=== PATIENT | female | born 1960 | race Caucasian/White ===

== ENCOUNTER 2017-08-25 06:22 | Emergency (ER) | payer BC ==
[2017-08-25] MEDS ORDERED: Ketorolac 30 MG/ML SDV IVPUSH ONE (07:07)
[2017-08-25] MEDS ORDERED: Sodium Chloride 0.9% 1,000 ML IV ONE (07:07)
[2017-08-25] MEDS ORDERED: Ondansetron 4 MG/2 ML SDV IVPUSH ONE (07:07)
[2017-08-25 07:11] LABS: CHLORIDE,CL 109 mmol/L (98-110); SODIUM,NA 142 mmol/L (136-146)
[2017-08-25] MEDS ORDERED: Tamsulosin 0.4 MG Cap.ER PO ONE (07:12)
--- NOTE | 2017-08-25 07:23 | EDM.PDOC ---
ED HPI GENERAL MEDICAL PROBLEM - General Chief Complaint: Abdominal Pain Stated Complaint: PAIN ON LEFT SIDE Time Seen by Provider: 08/25/17 08:56 - History of Present Illness INITIAL COMMENTS - FREE TEXT/NARRATIVE: HISTORY AND PHYSICAL: History of present illness: Patient 48-year-old white female presents with a concern of left flank and abdominal pain came on somewhat acutely she does have associated nausea no vomiting no fever chills she denies trauma denies urinary symptoms she has had prior urolithiasis she denies history of known diverticular disease Review of systems: As per history of present illness and below otherwise all systems reviewed and negative. Past medical history: As per history of present illness and as reviewed below otherwise noncontributory. Surgical history: As per history of present illness and as reviewed below otherwise noncontributory. Social history: No reported history of drug or alcohol abuse. Family history: As per history of present illness and as reviewed below otherwise noncontributory. Physical exam: HEENT: Atraumatic, normocephalic, pupils reactive, negative for conjunctival pallor or scleral icterus, mucous membranes moist, throat clear, neck supple, nontender, trachea midline. Lungs: Clear to auscultation, breath sounds equal bilaterally, chest nontender. Heart: S1S2, regular, negative for clicks, rubs, or JVD. Abdomen: Soft, nondistended, nontender. Negative for masses or hepatosplenomegaly. Left-sided costovertebral tenderness. Pelvis: Stable nontender. Genitourinary: Deferred. Rectal: Deferred. Extremities: Atraumatic, negative for cords or calf pain. Neurovascular unremarkable. Neuro: Awake, alert, oriented. Cranial nerves II through XII unremarkable. Cerebellum unremarkable. Motor and sensory unremarkable throughout. Exam nonfocal. Diagnostics: CBC CMP UA urine culture CT abdomen and pelvis Therapeutics: Saline 1 L bolus and Toradol 30 mg IV Zofran 4 mg IV Flomax 0.4 mg by mouth Dilaudid 1 mg when necessary Impression: #1 acute left flank/abdominal pain Definitive disposition and diagnosis as appropriate pending reevaluation and review of above. LLQ Abdomen Pain Score (Numeric/FACES): 7 - Related Data Allergies Allergy/AdvReac Type Severity Reaction Status Date / Time No Known Allergies Allergy Verified 08/25/17 06:33 Home Meds: Home Meds Levothyroxine 0.05 mcg PO DAILY 08/25/17 [History] Past Medical History Endocrine/Metabolic History: Reports: Hypothyroidism Social & Family History - Family History Family Medical History: Noncontributory - Tobacco Use Smoking Status *Q: Never Smoker - Recreational Drug Use Recreational Drug Use: No ED ROS GENERAL - Review of Systems Review Of Systems: ROS reveals no pertinent complaints other than HPI. ED EXAM, GENERAL - Physical Exam Exam: See Below (See dictation) Course - Vital Signs Last Recorded V/S: Last Vital Signs Temp 36.3 C 08/25/17 06:22 Pulse 72 08/25/17 06:22 Resp 18 08/25/17 06:22 BP 163/70 H 08/25/17 06:22 Pulse Ox 99 08/25/17 06:22 - Orders/Labs/Meds Orders: Active Orders 24 hr Category Date Time Status Abdomen Pelvis wo Cont [CT] Stat Exams 08/25/17 07:07 Taken Labs: Laboratory Tests 08/25/17 08/25/17 08/25/17 Range/Units 06:14 06:39 06:40 WBC 6.72 (4.0-11.0) K/uL RBC 4.54 (4.30-5.90) M/uL Hgb 13.7 (12.0-16.0) g/dL Hct 41.5 (36.0-46.0) % MCV 91.4 (80.0-98.0) fL MCH 30.2 (27.0-32.0) pg MCHC 33.0 (31.0-37.0) g/dL RDW Std Deviation 47.5 (28.0-62.0) fl RDW Coeff of Renetta 14 (11.0-15.0) % Plt Count 171 (150-400) K/uL MPV 10.30 (7.40-12.00) fL Neut % (Auto) 48.8 (48.0-80.0) % Lymph % (Auto) 41.5 H (16.0-40.0) % Pike % (Auto) 6.8 (0.0-15.0) % Eos % (Auto) 2.5 (0.0-7.0) % Baso % (Auto) 0.4 (0.0-1.5) % Neut # (Auto) 3.3 (1.4-5.7) K/uL Lymph # (Auto) 2.8 H (0.6-2.4) K/uL Pike # (Auto) 0.5 (0.0-0.8) K/uL Eos # (Auto) 0.2 (0.0-0.7) K/uL Baso # (Auto) 0.0 (0.0-0.1) K/uL Nucleated RBC % 0.0 /100WBC Nucleated RBCs # 0 K/uL Sodium (136-146) mmol/L Potassium (3.5-5.1) mmol/L Chloride (98-110) mmol/L Carbon Dioxide (21-31) mmol/L BUN (6.0-23.0) mg/dL Creatinine (0.6-1.5) mg/dL Est Cr Clr Drug Dosing Estimated GFR (MDRD) ml/min Glucose (60-110) mg/dL Calcium (8.8-10.8) mg/dL Total Bilirubin (0.1-1.5) mg/dL AST (5-40) IU/L ALT (8-54) IU/L Alkaline Phosphatase (40-150) Troponin I < 0.10 (0.0-0.29) NG/ML Total Protein (6.0-8.0) g/dL Albumin (3.5-5.0) g/dL Globulin (2.0-3.5) g/dL Albumin/Globulin Ratio (1.3-2.8) Amylase (10-90) U/L Lipase (7-80) U/L Urine Color YELLOW Urine Appearance SLT CLOUDY Urine pH 5.0 (5.0-8.0) Ur Specific [place] >= 1.030 (1.001-1.035) Urine Protein 30 (NEGATIVE) mg/dL Urine Glucose (UA) NEGATIVE (NEGATIVE) mg/dL Urine Ketones NEGATIVE (NEGATIVE) mg/dL Urine Occult Blood LARGE H (NEGATIVE) Urine Nitrite NEGATIVE (NEGATIVE) Urine Bilirubin SMALL H (NEGATIVE) Urine Ictotest NEGATIVE Urine Urobilinogen 1.0 (<2.0) EU/dL Ur Leukocyte Esterase NEGATIVE (NEGATIVE) Urine RBC 50-60 (0-2/HPF) Urine WBC 0-3 (0-5/HPF) Ur Epithelial Cells OCCASIONAL (NONE-FEW) Ur Renal Epithelial Cell RARE Urine Bacteria FEW (NEGATIVE) Urinalysis Comment 08/25/17 Range/Units 06:40 WBC (4.0-11.0) K/uL RBC (4.30-5.90) M/uL Hgb (12.0-16.0) g/dL Hct (36.0-46.0) % MCV (80.0-98.0) fL MCH (27.0-32.0) pg MCHC (31.0-37.0) g/dL RDW Std Deviation (28.0-62.0) fl RDW Coeff of Renetta (11.0-15.0) % Plt Count (150-400) K/uL MPV (7.40-12.00) fL Neut % (Auto) (48.0-80.0) % Lymph % (Auto) (16.0-40.0) % Pike % (Auto) (0.0-15.0) % Eos % (Auto) (0.0-7.0) % Baso % (Auto) (0.0-1.5) % Neut # (Auto) (1.4-5.7) K/uL Lymph # (Auto) (0.6-2.4) K/uL Pike # (Auto) (0.0-0.8) K/uL Eos # (Auto) (0.0-0.7) K/uL Baso # (Auto) (0.0-0.1) K/uL Nucleated RBC % /100WBC Nucleated RBCs # K/uL Sodium 142 (136-146) mmol/L Potassium 3.7 (3.5-5.1) mmol/L Chloride 109 (98-110) mmol/L Carbon Dioxide 24 (21-31) mmol/L BUN 16 (6.0-23.0) mg/dL Creatinine 1.1 (0.6-1.5) mg/dL Est Cr Clr Drug Dosing TNP Estimated GFR (MDRD) 51.0 ml/min Glucose 115 H (60-110) mg/dL Calcium 9.1 (8.8-10.8) mg/dL Total Bilirubin 0.4 (0.1-1.5) mg/dL AST 25 (5-40) IU/L ALT 23 (8-54) IU/L Alkaline Phosphatase 106 (40-150) Troponin I (0.0-0.29) NG/ML Total Protein 7.7 (6.0-8.0) g/dL Albumin 4.4 (3.5-5.0) g/dL Globulin 3.3 (2.0-3.5) g/dL Albumin/Globulin Ratio 1.3 (1.3-2.8) Amylase 59 (10-90) U/L Lipase 30 (7-80) U/L Urine Color Urine Appearance Urine pH (5.0-8.0) Ur Specific [place] (1.001-1.035) Urine Protein (NEGATIVE) mg/dL Urine Glucose (UA) (NEGATIVE) mg/dL Urine Ketones (NEGATIVE) mg/dL Urine Occult Blood (NEGATIVE) Urine Nitrite (NEGATIVE) Urine Bilirubin (NEGATIVE) Urine Ictotest Urine Urobilinogen (<2.0) EU/dL Ur Leukocyte Esterase (NEGATIVE) Urine RBC (0-2/HPF) Urine WBC (0-5/HPF) Ur Epithelial Cells (NONE-FEW) Ur Renal Epithelial Cell Urine Bacteria (NEGATIVE) Urinalysis Comment Meds: Medications Discontinued Medications Generic Name Dose Route Start Last Admin Trade Name Freq PRN Reason Stop Dose Admin Sodium Chloride 1,000 mls @ 999 mls/hr 08/25/17 07:07 08/25/17 07:18 Normal Saline IV 08/25/17 08:07 999 mls/hr STAT ONE Administration Ketorolac Tromethamine 30 mg 08/25/17 07:07 08/25/17 07:18 Toradol IVPUSH 08/25/17 07:08 30 mg ONETIME ONE Administration Ondansetron HCl 8 mg 08/25/17 07:07 08/25/17 07:18 Zofran IVPUSH 08/25/17 07:08 8 mg ONETIME ONE Administration Tamsulosin HCl 0.4 mg 08/25/17 07:12 08/25/17 07:25 Flomax PO 08/25/17 07:13 0.4 mg ONETIME ONE Administration Departure - Departure Time of Disposition: 08:56 Disposition: Home, Self-Care 01 Condition: Good Clinical Impression: Urolithiasis - Discharge Information Referrals: Quincy Ledesma MD [Primary Care Provider] - Forms: ED Department Discharge Additional Instructions: The following information is given to patients seen in the emergency department who are being discharged to home. This information is to outline your options for follow-up care. We provide all patients seen in our emergency department with a follow-up referral. The need for follow-up, as well as the timing and circumstances, are variable depending upon the specifics of your emergency department visit. If you don't have a primary care physician on staff, we will provide you with a referral. We always advise you to contact your personal physician following an emergency department visit to inform them of the circumstance of the visit and for follow-up with them and/or the need for any referrals to a consulting specialist. The emergency department will also refer you to a specialist when appropriate. This referral assures that you have the opportunity for followup care with a specialist. All of these measure are taken in an effort to provide you with optimal care, which includes your followup. Under all circumstances we always encourage you to contact your private physician who remains a resource for coordinating your care. When calling for followup care, please make the office aware that this follow-up is from your recent emergency room visit. If for any reason you are refused follow-up, please contact the [facility] emergency department at and asked to speak to the emergency department charge nurse. Hydrocodone Zofran as prescribed Flomax as prescribed called to schedule follow- up with urology at [facility] push fluids return as needed as discussed
[2017-08-25] MEDS ORDERED: HYDROmorphone 1 MG/ML Syringe IM ONE (09:01)
[2017-08-25] MEDS ORDERED: HYDROmorphone 1 MG/ML Syringe IV ONE (09:06)
[2017-08-25] MEDS ORDERED: Sodium Chloride 0.9% 1,000 ML IV SCH (09:15)
--- NOTE | 2017-08-25 19:10 | CT ---
EXAM DATE: 08/25/17 PATIENT'S AGE: 56 Patient: BRODIE COUCH Facility: [place], [place] Site . Site : 1960 Study: CT Abdomen/Pelvis [id number]/[id number] 7:55:03 AM Ordering Physician: Dodie Ellsworth Final Report: INDICATION: pain TECHNIQUE: Noncontrast CT scan of the abdomen and pelvis. FINDINGS: The lung bases show a 4 mm pulmonary nodule in the right middle lobe best seen on image 8 of series 201. No focal abnormalities identified in the visualized portions of the liver, spleen, pancreas, adrenal glands, and kidneys. 6 mm stone in the proximal left ureter which causes minimal left-sided hydronephrosis. Single small nonobstructing nephrolith in the lower pole of the left kidney. No other uroliths. No right-sided hydronephrosis. The GI tract is incompletely distended but shows no gross abnormalities. The stomach and GE junction are not well assessed. No retroperitoneal, pelvic sidewall, or mesenteric adenopathy. Atherosclerotic vascular calcifications. Gallstones in an otherwise normal-appearing gallbladder. No bile duct dilation. IMPRESSION: 1. 6 mm stone in the proximal left ureter which causes minimal left-sided hydronephrosis. 2. 4 mm pulmonary nodule in the right lower lobe. If the patient has a history of smoking a followup chest CT scan should be considered in 1 year to document stability of this nodule. Otherwise, no followup is required. Dictated by Mike Bella MD @ 08/25/2017 8:14:50 AM Dictated by: Mike Bella MD @ 08/25/2017 08:14:58 (Electronic Signature) Report Signed by Proxy. MOH[facility] VALLEY HEALTH SYSTEMMaty
== END 2017-08-25 10:26 | disposition home or self-care (01) ==
LOC: MW.ED 06:22
DX: N13.2 Hydronephrosis with renal and ureteral calculous obstruction (principal); E03.9 Hypothyroidism, unspecified; Z79.899 Other long term (current) drug therapy
CPT/HCPCS: 36415; 74176; 80053; 81001; 82150; 83690; 84484; 85025; 96361; 96374; 96375; 99284; A9270; J1170; J1885; J2405; J7040

== ENCOUNTER 2020-02-29 13:43 | Emergency (ER) | payer BC ==
[2020-02-29] MEDS ORDERED: Sodium Chloride 0.9% 2.5 ML Syringe FLUSH PRN (14:29)
[2020-02-29] MEDS ORDERED: Sodium Chloride 0.9% 10 ML Syringe FLUSH PRN (14:29)
[2020-02-29] MEDS ORDERED: Ondansetron 4 MG/2 ML SDV IVPUSH ONE (14:31)
[2020-02-29] MEDS ORDERED: Ketorolac 30 MG/ML SDV IVPUSH ONE (14:31)
[2020-02-29] MEDS ORDERED: Sodium Chloride 0.9% 1,000 ML IV ONE (14:31)
--- NOTE | 2020-02-29 14:35 | EDM.PDOC ---
ED HPI GENERAL MEDICAL PROBLEM - General Chief Complaint: Abdominal Pain Stated Complaint: LEFT SIDE ABDOMINAL PAIN Time Seen by Provider: 02/29/20 14:25 Source of Information: Reports: Patient History Limitations: Reports: No Limitations - History of Present Illness INITIAL COMMENTS - FREE TEXT/NARRATIVE: Presents reporting left flank pain. Patient states she has a history of renal stones and this pain is reminiscent of her previous episodes. Yesterday she started with some urinary stream stuttering and urgency. Then today reported some left flank pain accompanied by nausea and dry heaves. She is otherwise healthy without chronic medical problems except tyroid. She denies fever, burning with urination vomiting, diarrhea, constipation or abdominal pain. left kidney Pain Score (Numeric/FACES): 7 - Related Data Allergies Allergy/AdvReac Type Severity Reaction Status Date / Time No Known Allergies Allergy Verified 02/29/20 14:02 Home Meds: Home Meds Levothyroxine 0.05 mcg PO DAILY 08/25/17 [History] Hydrocodone/Acetaminophen [Hydrocodon-Acetaminoph 7.5-325] 1 tab PO Q6HR PRN #20 tablet 02/29/20 [Rx] Ondansetron [Zofran ODT] 1 tab PO Q6H PRN #8 tab.dis 02/29/20 [Rx] Tamsulosin HCl [Flomax] 0.4 mg PO DAILY #10 capsule 02/29/20 [Rx] Past Medical History - Past Health History Medical/Surgical History: Denies Medical/Surgical History Endocrine/Metabolic History: Reports: Hypothyroidism Social & Family History - Family History Family Medical History: Noncontributory ED ROS GENERAL - Review of Systems Review Of Systems: Comprehensive ROS is negative, except as noted in HPI. ED EXAM, RENAL/ - Physical Exam Exam: See Below Exam Limited By: No Limitations General Appearance: Alert, No Apparent Distress Ears: Normal External Exam Nose: Normal Inspection Throat/Mouth: Normal Inspection Head: Atraumatic, Normocephalic Neck: Normal Inspection Respiratory/Chest: No Respiratory Distress, Lungs Clear, Normal Breath Sounds Cardiovascular: Normal Peripheral Pulses, Regular Rate, Rhythm, No Edema GI/Abdominal: Soft, Non-Tender, No Distention Back Exam: No: CVA Tenderness (L), CVA Tenderness (R) Extremities: Normal Inspection Neurological: Alert, Oriented, Normal Cognition Psychiatric: Normal Affect, Normal Mood Skin Exam: Warm, Dry, Intact, Normal Color, No Rash Lymphatic: No Adenopathy Course - Vital Signs Last Recorded V/S: Last Vital Signs Temp 36.2 C 02/29/20 14:00 Pulse 79 02/29/20 14:00 Resp 16 02/29/20 14:00 BP 141/61 H 02/29/20 14:00 Pulse Ox 99 02/29/20 14:00 - Orders/Labs/Meds Orders: Active Orders 24 hr Category Date Time Status Sodium Chloride 0.9% [Saline Flush] Med 02/29/20 14:29 Ordered 10 ml FLUSH ASDIRECTED PRN Sodium Chloride 0.9% [Saline Flush] Med 02/29/20 14:29 Ordered 2.5 ml FLUSH ASDIRECTED PRN Saline Lock Insert [OM.PC] Stat Oth 02/29/20 14:29 Ordered Medication Orders Sodium Chloride (Saline Flush) 10 ml FLUSH ASDIRECTED PRN PRN Reason: Keep Vein Open Last Admin: 02/29/20 14:38 Dose: 10 ml Documented by: NINA Sodium Chloride (Saline Flush) 2.5 ml FLUSH ASDIRECTED PRN PRN Reason: Keep Vein Open Last Admin: 02/29/20 14:38 Dose: 2.5 ml Documented by: NINA Labs: Laboratory Tests 02/29/20 02/29/20 02/29/20 Range/Units 13:51 14:51 14:51 WBC 7.27 (4.0-11.0) K/uL RBC 4.05 L (4.30-5.90) M/uL Hgb 12.2 (12.0-16.0) g/dL Hct 37.7 (36.0-46.0) % MCV 93.1 (80.0-98.0) fL MCH 30.1 (27.0-32.0) pg MCHC 32.4 (31.0-37.0) g/dL RDW Std Deviation 46.7 (28.0-62.0) fl RDW Coeff of Renetta 14 (11.0-15.0) % Plt Count 148 L (150-400) K/uL MPV 10.50 (7.40-12.00) fL Neut % (Auto) 68.1 (48.0-80.0) % Lymph % (Auto) 23.2 (16.0-40.0) % [place] % (Auto) 7.3 (0.0-15.0) % Eos % (Auto) 1.1 (0.0-7.0) % Baso % (Auto) 0.3 (0.0-1.5) % Neut # (Auto) 5.0 (1.4-5.7) K/uL Lymph # (Auto) 1.7 (0.6-2.4) K/uL [place] # (Auto) 0.5 (0.0-0.8) K/uL Eos # (Auto) 0.1 (0.0-0.7) K/uL Baso # (Auto) 0.0 (0.0-0.1) K/uL Nucleated RBC % 0.0 /100WBC Nucleated RBCs # 0 K/uL Sodium 143 (136-145) mmol/L Potassium 3.8 (3.5-5.1) mmol/L Chloride 108 H (98-107) mmol/L Carbon Dioxide 25.7 (21.0-32.0) mmol/L BUN 15 (7.0-18.0) mg/dL Creatinine 1.0 (0.6-1.0) mg/dL Est Cr Clr Drug Dosing 61.74 mL/min Estimated GFR (MDRD) 56.4 ml/min Glucose 91 (74-106) mg/dL Calcium 8.2 L (8.5-10.1) mg/dL Total Bilirubin 0.4 (0.2-1.0) mg/dL AST 23 (15-37) IU/L ALT 25 (14-63) IU/L Alkaline Phosphatase 91 (46-116) U/L Total Protein 6.7 (6.4-8.2) g/dL Albumin 3.7 (3.4-5.0) g/dL Globulin 3.0 (2.6-4.0) g/dL Albumin/Globulin Ratio 1.2 (0.9-1.6) Urine Color DARK YELLOW Urine Appearance SLT CLOUDY Urine pH 5.5 (5.0-8.0) Ur Specific [place] >= 1.030 (1.001-1.035) Urine Protein TRACE H (NEGATIVE) mg/dL Urine Glucose (UA) NEGATIVE (NEGATIVE) mg/dL Urine Ketones NEGATIVE (NEGATIVE) mg/dL Urine Occult Blood LARGE H (NEGATIVE) Urine Nitrite POSITIVE H (NEGATIVE) Urine Bilirubin NEGATIVE (NEGATIVE) Urine Urobilinogen 1.0 (<2.0) EU/dL Ur Leukocyte Esterase TRACE H (NEGATIVE) Urine RBC TOO NUMEROUS TO CT H (0-2/HPF) Urine WBC 10-15 (0-5/HPF) Ur Epithelial Cells FEW (NONE-FEW) Urine Bacteria 2+ H (NEGATIVE) Urine Mucus LIGHT (NONE-MOD) Meds: Medications Generic Name Dose Route Start Last Admin Trade Name Freq PRN Reason Stop Dose Admin Sodium Chloride 10 ml 02/29/20 14:29 02/29/20 14:38 Saline Flush FLUSH 10 ml ASDIRECTED PRN Administration Keep Vein Open Sodium Chloride 2.5 ml 02/29/20 14:29 02/29/20 14:38 Saline Flush FLUSH 2.5 ml ASDIRECTED PRN Administration Keep Vein Open Discontinued Medications Generic Name Dose Route Start Last Admin Trade Name Freq PRN Reason Stop Dose Admin Sodium Chloride 1,000 mls @ 999 mls/hr 02/29/20 14:31 02/29/20 14:38 Normal Saline IV 02/29/20 15:31 999 mls/hr STAT ONE Administration Ketorolac Tromethamine 30 mg 02/29/20 14:31 02/29/20 14:45 Toradol IVPUSH 02/29/20 14:32 30 mg ONETIME ONE Administration Ondansetron HCl 4 mg 02/29/20 14:31 02/29/20 14:45 Zofran IVPUSH 02/29/20 14:32 4 mg ONETIME ONE Administration - Re-Assessments/Exams Free Text/Narrative Re-Assessment/Exam: 02/29/20 16:03 States on the last occasion when she had a kidney stone she was able to pass it on her own uneventfully. She has been seen by Dr. Santana in urology in the past and will make an appointment tomorrow morning. Departure - Departure Time of Disposition: 16:09 Disposition: Home, Self-Care 01 Clinical Impression: Ureteral calculus - Discharge Information Referrals: Quincy Ledesma MD [Primary Care Provider] - Barbie Santana MD [Physician] - Forms: ED Department Discharge Additional Instructions: The following information is given to patients seen in the emergency department who are being discharged to home. This information is to outline your options for follow-up care. We provide all patients seen in our emergency department with a follow-up referral. The need for follow-up, as well as the timing and circumstances, are variable depending upon the specifics of your emergency department visit. If you don't have a primary care physician on staff, we will provide you with a referral. We always advise you to contact your personal physician following an emergency department visit to inform them of the circumstance of the visit and for follow-up with them and/or the need for any referrals to a consulting specialist. The emergency department will also refer you to a specialist when appropriate. This referral assures that you have the opportunity for follow-up care with a specialist. All of these measure are taken in an effort to provide you with optimal care, which includes your follow-up. Under all circumstances we always encourage you to contact your private physician who remains a resource for coordinating your care. When calling for follow-up care, please make the office aware that this follow-up is from your recent emergency room visit. If for any reason you are refused follow-up, please contact the [facility] Emergency Department at and asked to speak to the emergency department charge nurse. 1. Take your Flomax once daily 2. strain your urine 3. Hydrocodone every 6 hours as needed for pain. No driving or operating machinery 4. Zofran every 6 hours as needed for nausea 5. Large amounts of fluids 6. Make an appointment with Dr. Santana in Urology for follow up Sepsis Event Note (ED) - Evaluation Sepsis Screening Result: No Definite Risk - Focused Exam Vital Signs: Vital Signs Temp Pulse Resp BP Pulse Ox 02/29/20 14:00 36.2 C 79 16 141/61 H 99 - My Orders Last 24 Hours: My Active Orders 02/29/20 14:29 Sodium Chloride 0.9% [Saline Flush] 10 ml FLUSH ASDIRECTED PRN Sodium Chloride 0.9% [Saline Flush] 2.5 ml FLUSH ASDIRECTED PRN Saline Lock Insert [OM.PC] Stat - Assessment/Plan Last 24 Hours: My Active Orders 02/29/20 14:29 Sodium Chloride 0.9% [Saline Flush] 10 ml FLUSH ASDIRECTED PRN Sodium Chloride 0.9% [Saline Flush] 2.5 ml FLUSH ASDIRECTED PRN Saline Lock Insert [OM.PC] Stat
[2020-02-29 15:24] LABS: CARBON DIOXIDE,CO2 25.7 mmol/L (21.0-32.0); POTASSIUM,K 3.8 mmol/L (3.5-5.1)
--- NOTE | 2020-02-29 15:41 | CT ---
CT abdomen and pelvis Technique: Multiple axial sections were obtained from above the dome of the diaphragm inferiorly through the pubic symphysis. Intravenous and oral contrast not utilized. Reconstructed coronal and sagittal images were obtained. Comparison: Prior CT abdomen and pelvis exam of 08/25/17. Findings: Small calcification is seen within the right middle lobe compatible with granuloma. Prior nodule within the right middle lobe is not seen on current study. Noncontrast appearance of the liver and spleen shows no discrete abnormality. Several calcified gallstones are noted within the gallbladder. Small hiatal hernia is noted. Pancreas shows no discrete abnormality. Adrenal glands show no nodule. Aorta shows atherosclerotic calcification. No retroperitoneal adenopathy or mesenteric abnormalities are seen. Kidneys show no abnormal calcifications. Left ureter is mildly prominent in size. This finding is caused by an obstructing distal left ureteral stone measuring 4.5 mm which lies close to the left UVJ. Fat-containing umbilical hernia is noted. No pelvic mass or adenopathy is noted. No free fluid or inflammatory change is appreciated. Bone window settings were reviewed which shows minimal degenerative change within the spine. No acute osseous finding is appreciated. Impression: 1. Slightly dilated left ureter caused by a 4.5 mm stone within the distal left ureter which lies close to the left UVJ. 2. No renal calculi are seen. 3. No other acute abnormality is appreciated on CT study of the abdomen and pelvis performed without contrast. Diagnostic code #3 This report was dictated in MDT
== END 2020-02-29 16:22 | disposition home or self-care (01) ==
LOC: MW.ED 13:43
DX: N20.1 Calculus of ureter (principal); E03.9 Hypothyroidism, unspecified; Z79.899 Other long term (current) drug therapy
CPT/HCPCS: 36415; 74176; 80053; 81001; 85025; 96374; 96375; 99284; J1885; J2405; J7030

== ENCOUNTER 2021-12-30 14:20 | Emergency (ER) | payer BC ==
[2021-12-30] MEDS ORDERED: Aspirin 81 MG Tab.Chew PO ONE (15:02)
[2021-12-30] MEDS ORDERED: Ondansetron 4 MG/2 ML SDV IVPUSH ONE ×2 (15:02→20:30)
[2021-12-30 15:29] LABS: CORONAVIRUS COVID-19 NAA NEGATIVE (NEGATIVE); INFLUENZA A NAA NEGATIVE (NEGATIVE); INFLUENZA B NAA NEGATIVE (NEGATIVE)
[2021-12-30] MEDS ORDERED: Morphine 4 MG/ML VIAL IVPUSH STA (15:40)
[2021-12-30 15:41] LABS: CARBON DIOXIDE,CO2 25.5 mmol/L (21.0-32.0); POTASSIUM,K 4.2 mmol/L (3.5-5.1)
[2021-12-30] MEDS ORDERED: Famotidine 20 MG/2 ML SDV IVPUSH ONE (16:56)
[2021-12-30] MEDS ORDERED: Iopamidol 755 MG/ML 500 ML Multipack Bottle IVPUSH STA (17:16)
[2021-12-30] MEDS ORDERED: Morphine 4 MG/ML VIAL IVPUSH ONE (20:30)
== END 2021-12-30 22:30 | disposition home or self-care (01) ==
LOC: MW.ED 14:20
DX: K80.20 Calculus of gallbladder without cholecystitis without obstruction (principal); E03.9 Hypothyroidism, unspecified; I10 Essential (primary) hypertension; Z20.822 Contact with and (suspected) exposure to COVID-19; Z79.899 Other long term (current) drug therapy
CPT/HCPCS: 0240U; 36415; 71045; 71275; 74174; 76705; 80053; 83735; 84439; 84443; 84484; 85025; 85610; 93005; 96374; 96375; 96376; 99291; A9270; J2270; J2405; J3490; Q9967; 93010

== ENCOUNTER 2022-02-26 06:39 | Observation (INO) | payer BC ==
[~2022-02-26 06:39] MED LIST: Lactated Ringers 1,000 ML IV SCH; Sodium Chloride 0.9% 10 ML Syringe FLUSH PRN; Sodium Chloride 0.9% 2.5 ML Syringe FLUSH PRN; Sodium Chloride 0.9% 20 ML SDV IV PRN
[2022-02-26] MEDS ORDERED: Propofol 200 MG/20 ML SDV ONE ×2 (07:27→10:13)
[2022-02-26] MEDS ORDERED: Sugammadex Sodium 200 MG/2 ML VIAL ONE (07:27)
[2022-02-26] MEDS ORDERED: Ketorolac 30 MG/ML SDV ONE (07:27)
[2022-02-26] MEDS ORDERED: Ondansetron 4 MG/2 ML SDV ONE (07:27)
[2022-02-26] MEDS ORDERED: Rocuronium Bromide 50 MG/5 ML Syringe ONE ×2 (07:27→09:43)
[2022-02-26] MEDS ORDERED: Dexmedetomidine 200 MCG/2 ML SDV ONE (07:27)
[2022-02-26] MEDS ORDERED: fentaNYL 250 MCG/5 ML SDV ONE (07:27)
[2022-02-26] MEDS ORDERED: Water For Injection, Sterile 20 ML ONE (07:28)
[2022-02-26] MEDS ORDERED: Bupivacaine 0.5% 30 ML SDV ONE (07:31)
[2022-02-26] MEDS ORDERED: Ropivacaine 0.5% 5 MG/ML 30 ML SDV ONE ×2 (07:38→07:39)
[2022-02-26] MEDS ORDERED: ceFAZolin 2 GM in Premix Bag 1 BAG IV ONE (08:00)
[2022-02-26] MEDS ORDERED: Metoclopramide 10 MG/2 ML SDV IVPUSH PRN (08:01)
[2022-02-26] MEDS ORDERED: HYDROmorphone 1 MG/ML Syringe IVPUSH PRN (08:01)
[2022-02-26] MEDS ORDERED: Albuterol 0.083% 2.5 MG/3 ML Neb Soln NEB PRN (08:01)
[2022-02-26] MEDS ORDERED: Ondansetron 4 MG/2 ML SDV IVPUSH PRN ×2 (08:01→12:15)
[2022-02-26] MEDS ORDERED: Naloxone 0.4 MG/ML SDV IVPUSH PRN (08:01)
[2022-02-26] MEDS ORDERED: fentaNYL 50 MCG/ML SDV IVPUSH PRN (08:01)
[2022-02-26] MEDS ORDERED: Morphine 4 MG/ML VIAL IVPUSH PRN (08:01)
[2022-02-26] MEDS ORDERED: Indocyanine Green 25 MG SDV ONE (08:06)
[2022-02-26] MEDS ORDERED: Magnesium Sulfate (4.06 MEQ/ML) 5 GM/10 ML SDV ONE (08:34)
[2022-02-26] MEDS ORDERED: Dexamethasone 4 MG/ML 5 ML MDV ONE (08:34)
[2022-02-26] MEDS ORDERED: Ketamine 500 mg/10 ML MDV ONE (09:11)
[2022-02-26] MEDS ORDERED: fentaNYL 100 MCG/2 ML SDV ONE (10:30)
[2022-02-26] MEDS ORDERED: Octyl 2-Cyanoacrylate 1 g/1 mL 1 APPLIC PEN ONE (11:05)
[2022-02-26] MEDS ORDERED: diphenhydrAMINE 50 MG/ML SDV IVPUSH PRN (12:15)
[2022-02-26] MEDS ORDERED: HYDROmorphone 2 MG/ML Syringe IVPUSH PRN (12:15)
[2022-02-26] MEDS: Acetaminophen/oxyCODONE 325-5 MG Tab PO PRN ×2 (14:35→20:03)
[2022-02-26 16:16] LABS: CARBON DIOXIDE,CO2 24.5 mmol/L (21.0-32.0); POTASSIUM,K 3.6 mmol/L (3.5-5.1)
[2022-02-26] MEDS: Phosphorus #1 250 MG Tab PO SCH (19:37)
[2022-02-27] MEDS: Phosphorus #1 250 MG Tab PO SCH ×2 (00:01→05:22)
[2022-02-27 07:01] LABS: CARBON DIOXIDE,CO2 25.3 mmol/L (21.0-32.0); POTASSIUM,K 4.5 mmol/L (3.5-5.1)
[2022-02-27] MEDS ORDERED: Phosphorus #1 250 MG Tab PO SCH (18:57)
== END 2022-02-27 10:55 | disposition home or self-care (01) ==
LOC: MW.SDS 06:39 → MW.MS 12:30
PROVIDERS: ADMIT Surgery; ATTEND Surgery
DX: K80.00 Calculus of gallbladder with acute cholecystitis without obstruction (principal); D25.2 Subserosal leiomyoma of uterus; M79.81 Nontraumatic hematoma of soft tissue; M19.90 Unspecified osteoarthritis, unspecified site; M17.10 Unilateral primary osteoarthritis, unspecified knee; K21.9 Gastro-esophageal reflux disease without esophagitis; E03.9 Hypothyroidism, unspecified; Z79.899 Other long term (current) drug therapy; Z87.891 Personal history of nicotine dependence; Z98.890 Other specified postprocedural states; Z79.890 Hormone replacement therapy
CPT/HCPCS: 36415; 47562; 80053; 83735; 84100; 85025; 96374; A9270; G0378; J0131; J1100; J2405; J2704; J2795; J3010; J3475; J3490; J7120; 00790; 64488; J1885

== ENCOUNTER 2022-08-13 19:10 | Emergency (ER) | payer BC ==
[2022-08-13] MEDS ORDERED: Sodium Chloride 0.9% 10 ML Syringe FLUSH PRN (20:24)
[2022-08-13] MEDS ORDERED: Sodium Chloride 0.9% 2.5 ML Syringe FLUSH PRN (20:24)
[2022-08-13 21:56] LABS: CARBON DIOXIDE,CO2 28.2 mmol/L (21.0-32.0); POTASSIUM,K 3.1 mmol/L (3.5-5.1)
[2022-08-13] MEDS ORDERED: Iopamidol 755 MG/ML 500 ML Multipack Bottle IVPUSH STA (22:39)
[2022-08-13] MEDS ORDERED: Potassium Chloride 20 MEQ Tab.ER PO ONE (23:13)
== END 2022-08-14 00:32 | disposition home or self-care (01) ==
LOC: MW.ED 19:10
DX: K42.9 Umbilical hernia without obstruction or gangrene (principal); E03.9 Hypothyroidism, unspecified
CPT/HCPCS: 36415; 74177; 80053; 83605; 83690; 85025; 99284; A9270; J3490; Q9967